=== PATIENT | female | born 1980 | race Two or more races ===

== ENCOUNTER 2023-11-23 09:25 | Emergency (ER) | payer OTHER ==
[~2023-11-23] VITALS: Ht 165.1 cm; Wt 71.2 kg
[2023-11-23] MEDS ORDERED: ORPHENADRINE CITRATE 30 MG/ML AMPUL IM ONE (11:45)
[2023-11-23] MEDS ORDERED: KETOROLAC TROMETHAMINE 60 MG VIAL IM ONE (11:45)
== END 2023-11-23 16:11 | disposition home or self-care (01) ==
LOC: ER 09:25
DX: S39.82XA Other specified injuries of lower back, initial encounter (principal); W10.0XXA Fall (on)(from) escalator, initial encounter; Y93.89 Activity, other specified; Y92.89 Other specified places as the place of occurrence of the external cause; S29.8XXA Other specified injuries of thorax, initial encounter; M62.838 Other muscle spasm; M54.50 Low back pain, unspecified; M50.322 Other cervical disc degeneration at C5-C6 level
CPT/HCPCS: 71046; 72040; 72070; 96372; 99283; J1885; J2360